=== PATIENT | female | born 1985 | race Caucasian/White ===

== ENCOUNTER 2023-02-07 16:07 | Emergency (ER) | payer OTHER, SELFPAY ==
[2023-02-07 16:15] VITALS: BP 133/81; PULSE 115; RESP 18; TEMP 36.7; O2SAT 100; BMI 22.7
[2023-02-07 18:18] LABS: Hematocrit 29.7 % (36.0-48.0); Hemoglobin 9.3 g/dL (12.0-16.0); Mean Corpuscular HGB Conc 31.3 g/dL (29.9-35.2); Mean Corpuscular Hemoglobin 24.9 pg (26.7-34.0); Mean Corpuscular Volume 79.6 fL (81.0-99.0); Mean Platelet Volume 8.7 fL (9.5-13.5); Platelet Count 870 10^3/uL (150-450); Red Blood Count 3.73 10^6/uL (4.20-5.40); Red Cell Distribution Width 16.5 % (11.0-15.0); White Blood Count 27.4 10^3/uL (4.0-11.0)
[2023-02-07 18:19] LABS: Bilirubin Urine SMALL (NEGATIVE); Blood Urine NEGATIVE (NEGATIVE); Clarity Urine CLEAR (CLEAR); Color Urine DK. YELLOW (YELLOW); Glucose Urine UA NEGATIVE (NEGATIVE); Ketones Urine NEGATIVE (NEGATIVE); Leukocyte Esterase Urine NEGATIVE (NEGATIVE); Nitrite Urine NEGATIVE (NEGATIVE); Protein Urine 30 mg/dL (NEG/TRACE); Specific Gravity Urine 1.025 (1.005-1.025); pH Urine 5.5 (5.0-9.0)
[2023-02-07 18:21] LABS: HCG Qualitative Urine* NEGATIVE (NEGATIVE)
[2023-02-07 18:22] LABS: Urine Microscopic Indicated YES
[2023-02-07 18:30] LABS: Bacteria Urine TRACE #/HPF (NONE SEEN); Cast Seen? SEEN #/LPF (NONE SEEN); Crystals Seen? None Seen #/HPF (None Seen); Hyaline Casts Urine RARE; Mucus Urine NONE SEEN (NONE SEEN); RBC Urine 0-2 #/HPF (0-2); Squamous Epithelial Cell Urine FEW #/LPF (NONE/RARE); Urine Culture Indicated NO; WBC Urine 0-2 #/HPF (NONE SEEN)
[2023-02-07 18:31] LABS: Alanine Aminotransferase 27 U/L (14-59); Albumin Globulin Ratio 0.4; Albumin Level 2.5 g/dL (3.4-5.0); Alkaline Phosphatase 188 U/L (46-116); Anion Gap 16.5; Aspartate Amino Transferase 30 U/L (15-37); BUN Creatinine Ratio 13.7; Bilirubin Total 0.4 mg/dL (0.2-1.0); Calcium 9.4 mg/dL (8.5-10.1); Chloride 95 mmol/L (98-107); Estimated GFR (African America >60 (>=60); Estimated GFR (Non-African Ame >60 (>=60); Globulin 5.9 g/dL; Glucose 93 mg/dL (74-106); Potassium 3.5 mmol/L (3.5-5.1); Sodium 136 mmol/L (136-145); Total Protein 8.4 g/dL (6.4-8.2)
[2023-02-07] MEDS: FAMOTIDINE/PF 20 MG/2 ML VIAL IV (18:31)
[2023-02-07 18:35] LABS: Anisocytosis 1+; Hypochromasia 1+; Lymphocytes Absolute Manual 4.38 10^3/uL (1.20-3.80); Monocytes Absolute Manual 1.09 10^3/uL (0.30-0.80); Segmented Neut Absolute Manual 21.92 10^3/uL (1.4-6.5)
--- NOTE | 2023-02-07 18:47 | CT_ITS ---
The [address] [address] Patient Name: CHAYO PATEL MRN: [id number] date: 1985 Sex: F Assigned Patient Location: ER Current Patient Location: ER Accession/Order Number: [id number] Exam Date: 02/07/2023 19:23 Report Date: 02/07/2023 20:42 At the request of: ROSE PUENTE Procedure: CT abdomen pelvis w con EXAM: CT abdomen pelvis w con HISTORY: pain COMPARISON: None. TECHNIQUE: CT of the abdomen and pelvis with intravenous contrast. Dose reduction techniques were achieved by using automated exposure control and/or adjustment of mA and/or kV according to patient size and/or use of iterative reconstruction technique. FINDINGS: TUBES AND IMPLANTS: Intrauterine device LOWER CHEST: Trace left pleural effusion. Left lower lobe segmental atelectasis. Small left lower lobe calcification which may representing a granuloma ABDOMEN and PELVIS ABDOMINAL WALL AND SOFT TISSUES: Unremarkable. BONES: No suspicious lesions. ARTERIES: No aortoiliac aneurysm VEINS: Unremarkable. LYMPH NODES: Mildly prominent periportal lymph nodes are seen in there. PERITONEUM/ RETROPERITONEUM: There is a large fluid collection seen abutting the left lobe of the liver and stomach measuring up 11.3 by 7.6 by 12.5 centimeters with mass effect on the liver parenchyma. There are adjacent lobulated appearing lesions within the liver parenchyma as well as anterior to stomach. Presacral fat stranding is also noted. BOWEL: Mild wall thickening of the sigmoid colon adjacent to the pelvic inflammatory process. APPENDIX: Unremarkable LIVER: Intraparenchymal and perihepatic fluid collections as previously described. Ill-defined hypodensity seen in the right and left lobes of the liver GALLBLADDER: Mild wall thickening, likely reactive BILE DUCTS: Not dilated SPLEEN: Unremarkable. PANCREAS: Unremarkable. ADRENALS: Unremarkable. KIDNEYS/ URETERS: Unremarkable. REPRODUCTIVE ORGANS: There are inflammatory changes seen around both ovaries and surrounding the uterus. The right ovary demonstrates a 3.7 centimeter cystic lesion. The left ovary demonstrates a multi multi loculated appearance with multiple cystic lesions URINARY BLADDER: Diffuse wall thickening CT/CT abdomen pelvis w con IMPRESSION: 1. 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 2. Mild wall thickening of the gallbladder sigmoid colon and bladder suggesting reactive cholecystitis, colitis and cystitis. 3. Trace left pleural effusion. Left lower lobe segmental atelectasis. Electronically authenticated by: ARACELI LOPEZ Date: 02/07/2023 20:42
--- NOTE | 2023-02-07 18:49 | ED.GENADUL1 ---
Documented by User: Yenny Galarza 02/08/23 13:43 HPI - General Adult General Chief complaint: Abdominal Pain Stated complaint: Loss Weight Time Seen by Provider: 02/07/23 18:05 Source: patient Mode of arrival: walk-in Limitations: no limitations History of Present Illness HPI narrative: 37 year old female presents with chief complaint of midepigastric abdominal pain with weight loss over the past several weeks. pt states when she eats her symptoms do improve for a short period of time. Patient also states she's had a 14 pound weight loss believes that is due to the gastroenteritis she had several weeks ago. Patient's afebrile. Abdomen soft nontender palpation. She does not appear toxic. pt states she recently finished 7 day course of keflex for uti. Related Data Allergies Allergy/AdvReac Type Severity Reaction Status Date / Time orphenadrine [From Norflex] Allergy Intermediate Verified 02/07/23 16:20 Sulfa (Sulfonamide Allergy Intermediate Verified 02/07/23 16:20 Antibiotics) Review of Systems ROS Narrative All Systems are negative except as noted/marked.All systems reviewed and otherwise negative PFSH PFSH Social History Smoking status: Current every day smoker Exam Narrative Exam Narrative: Nurses note and vital signs reviewed and patient is not hypoxic. General: The patient appears well and in no apparent distress. Patient is resting comfortably on cart. Skin: Warm, dry, no pallor noted. There is no rash noted. Head: Normocephalic, atraumatic Eye: Normal conjunctiva, no drainage, EOMI. PERRL Ears, Nose, Mouth, and Throat: oral mucosa is moist. Nares patent. Mouth without vesicles. Ear canals patent. Tm's without Erythema Cardiovascular: Regular Rate and Rhythm Respiratory: Patient is in no distress, no accessory muscle use, lungs are clear to auscultation, no wheezing, rales or rhonchi : pelvic exam benign, no cervical motion tenderness, no vaginal drainage or discharge Back: non-tender, no CVA tenderness bilaterally to percussion. GI: Normal bowel sounds, no tenderness to palpation, no masses appreciated. No rebound, guarding, or rigidity noted. Neurological: A&O x4, normal speech Psychiatric: Cooperative Constitutional Vital Signs, click to edit/add: Last Vital Signs Temp 98.1 F 02/07/23 16:15 Pulse 95 H 02/07/23 22:50 Resp 16 02/07/23 22:50 BP 107/63 02/07/23 22:50 Pulse Ox 99 02/07/23 22:50 O2 Del Method Room Air 02/07/23 22:50 Course Vital Signs Vital signs: Vital Signs Temperature 98.1 F 02/07/23 16:15 Pulse Rate 115 H 02/07/23 16:15 Respiratory Rate 18 02/07/23 16:15 Blood Pressure 133/81 02/07/23 16:15 Pulse Oximetry 100 02/07/23 16:15 Oxygen Delivery Method Room Air 02/07/23 16:15 Temperature 98.1 F 02/07/23 16:15 Pulse Rate 95 H 02/07/23 22:50 Respiratory Rate 16 02/07/23 22:50 Blood Pressure 107/63 02/07/23 22:50 Pulse Oximetry 99 02/07/23 22:50 Oxygen Delivery Method Room Air 02/07/23 22:50 Medical Decision Making MDM Narrative Medical decision making narrative: pt presents emergency room chief complaint epigastric pain and a feeling of fullness. She also states she's had an 11-14 pound weight loss over last several weeks. Recently finished a course of antibiotics for urinary tract infection. During the course of examination today patient states her fianc? had recently broke up she did have some vaginal drainage, discharge uncertain as to color or consistency. She finished Keflex today. pelvic Exam here in the emergency room was performed and benign. no cervical motion tenderness or signs of drainage. CBC came back with elevation twenty-seven thousand, urinalysis CMP unremarkable. CT scan results below show findings LYMPH NODES: Mildly prominent periportal lymph nodes are seen in there. PERITONEUM/ RETROPERITONEUM: There is a large fluid collection seen abutting the left lobe of the liver and stomach measuring up 11.3 by 7.6 by 12.5 centimeters with mass effect on the liver parenchyma. There are adjacent lobulated appearing lesions within the liver parenchyma as well as anterior to stomach. Presacral fat stranding is also noted. concerning for possible pelvic inflammatory disease, mild wall thickening of the gallbladder; bladder suggesting retroactive cholecystitis and cystitis along with trace pleural effusion. call was made to composition weatherboard installer surgeon Dr Duenas, he states the patient will be better served with interventional radiology. We have a call out currently to [facility] for possible transfer. IV zosyn has been started. Medical Records Medical records reviewed: Yes I reviewed the patient's medical records Lab Data Lab results reviewed: Yes I reviewed the patient's lab results Labs: Lab Results 02/07/23 Range/Units 18:00 WBC 27.4 H (4.0-11.0) 10^3/uL RBC 3.73 L (4.20-5.40) 10^6/uL Hgb 9.3 L (12.0-16.0) g/dL Hct 29.7 L (36.0-48.0) % MCV 79.6 L (81.0-99.0) fL MCH 24.9 L (26.7-34.0) pg MCHC 31.3 (29.9-35.2) g/dL RDW 16.5 H (11.0-15.0) % Plt Count 870 H (150-450) 10^3/uL MPV 8.7 L (9.5-13.5) fL Seg Neuts % (Manual) 80.0 Lymphocytes % (Manual) 16.0 L (20.5-60.0) % Monocytes % (Manual) 4.0 (1.7-12.0) % Eosinophils % (Manual) 0.0 L (0.9-7.0) % Basophils % (Manual) 0.0 L (0.2-2.0) % Neutrophils # (Manual) 21.92 H (1.4-6.5) 10^3/uL Lymphocytes # (Manual) 4.38 H (1.20-3.80) 10^3/uL Monocytes # (Manual) 1.09 H (0.30-0.80) 10^3/uL Eosinophils # (Manual) 0.00 (0.00-0.70) 10^3/uL Basophils # (Manual) 0.00 (0.00-0.10) 10^3/uL Hypochromasia 1+ Anisocytosis 1+ Sodium 136 (136-145) mmol/L Potassium 3.5 (3.5-5.1) mmol/L Chloride 95 L (98-107) mmol/L Carbon Dioxide 28.0 (21.0-32.0) mmol/L Anion Gap 16.5 BUN 13.0 (7.0-18.0) mg/dL Creatinine 0.95 (0.55-1.02) mg/dL Est GFR ( Amer) >60 (>=60) Est GFR (Non-Af Amer) >60 (>=60) BUN/Creatinine Ratio 13.7 Glucose 93 (74-106) mg/dL Calcium 9.4 (8.5-10.1) mg/dL Total Bilirubin 0.4 (0.2-1.0) mg/dL AST 30 (15-37) U/L ALT 27 (14-59) U/L Alkaline Phosphatase 188 H (46-116) U/L Total Protein 8.4 H (6.4-8.2) g/dL Albumin 2.5 L (3.4-5.0) g/dL Globulin 5.9 g/dL Albumin/Globulin Ratio 0.4 Lipase 16.0 (16.0-77.0) U/L Urine Color Dk. yellow (YELLOW) Urine Clarity Clear (CLEAR) Urine pH 5.5 (5.0-9.0) Ur Specific [place] 1.025 (1.005-1.025) Urine Protein 30 A (NEG/TRACE) mg/dL Urine Glucose (UA) Negative (NEGATIVE) mg/dL Urine Ketones Negative (NEGATIVE) mg/dL Urine Occult Blood Negative (NEGATIVE) Urine Nitrite Negative (NEGATIVE) Urine Bilirubin Small A (NEGATIVE) Urine Urobilinogen 1.0 (0.2-1.0) EU/dL Ur Leukocyte Esterase Negative (NEGATIVE) Urine RBC 0-2 (0-2) #/HPF Urine WBC 0-2 A (NONE SEEN) #/HPF Ur Squamous Epith Cells Few A (NONE/RARE) #/LPF Urine Crystals None seen (None Seen) #/HPF Urine Bacteria Trace A (NONE SEEN) #/HPF Urine Casts Seen A (NONE SEEN) #/LPF Hyaline Casts Rare Urine Mucus None seen (NONE SEEN) Ur Culture Indicated? No Urine HCG, Qual Negative (NEGATIVE) Monoscreen Negative (NEGATIVE) Imaging Data CT scan - abdomen: Radiologist's impression: Procedure: CT abdomen pelvis w con EXAM: CT abdomen pelvis w con HISTORY: pain COMPARISON: None. TECHNIQUE: CT of the abdomen and pelvis with intravenous contrast. Dose reduction techniques were achieved by using automated exposure control and/or adjustment of mA and/or kV according to patient size and/or use of iterative reconstruction technique. FINDINGS: TUBES AND IMPLANTS: Intrauterine device LOWER CHEST: Trace left pleural effusion. Left lower lobe segmental atelectasis. Small left lower lobe calcification which may representing a granuloma ABDOMEN and PELVIS ABDOMINAL WALL AND SOFT TISSUES: Unremarkable. BONES: No suspicious lesions. ARTERIES: No aortoiliac aneurysm VEINS: Unremarkable. LYMPH NODES: Mildly prominent periportal lymph nodes are seen in there. PERITONEUM/ RETROPERITONEUM: There is a large fluid collection seen abutting the left lobe of the liver and stomach measuring up 11.3 by 7.6 by 12.5 centimeters with mass effect on the liver parenchyma. There are adjacent lobulated appearing lesions within the liver parenchyma as well as anterior to stomach. Presacral fat stranding is also noted. BOWEL: Mild wall thickening of the sigmoid colon adjacent to the pelvic inflammatory process. APPENDIX: Unremarkable LIVER: Intraparenchymal and perihepatic fluid collections as previously described. Ill-defined hypodensity seen in the right and left lobes of the liver GALLBLADDER: Mild wall thickening, likely reactive BILE DUCTS: Not dilated SPLEEN: Unremarkable. PANCREAS: Unremarkable. ADRENALS: Unremarkable. KIDNEYS/ URETERS: Unremarkable. REPRODUCTIVE ORGANS: There are inflammatory changes seen around both ovaries and surrounding the uterus. The right ovary demonstrates a 3.7 centimeter cystic lesion. The left ovary demonstrates a multi multi loculated appearance with multiple cystic lesions URINARY BLADDER: Diffuse wall thickening IMPRESSION: 1. 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 2. Mild wall thickening of the gallbladder sigmoid colon and bladder suggesting reactive cholecystitis, colitis and cystitis. 3. Trace left pleural effusion. Left lower lobe segmental atelectasis. Electronically authenticated Discharge Plan Discharge Chief Complaint: Abdominal Pain Clinical Impression: Perihepatic abscess, Leukocytosis, Colitis, Cholecystitis Patient Disposition: [facility] Time of Disposition Decision: 23:10 Discharge Location: [facility] Discharge Date/Time: 02/08/23 01:35 Documented by User: Severino Dee MD 02/07/23 21:42 HPI - General Adult General Chief complaint: Abdominal Pain Stated complaint: Loss Weight Time Seen by Provider: 02/07/23 18:05 Related Data Allergies Allergy/AdvReac Type Severity Reaction Status Date / Time orphenadrine [From Norflex] Allergy Intermediate Verified 02/07/23 16:20 Sulfa (Sulfonamide Allergy Intermediate Verified 02/07/23 16:20 Antibiotics) PFSH PFS Social History Smoking status: Current every day smoker Exam Constitutional Vital Signs, click to edit/add: Last Vital Signs Temp 98.1 F 02/07/23 16:15 Pulse 95 H 02/07/23 22:50 Resp 16 02/07/23 22:50 BP 107/63 02/07/23 22:50 Pulse Ox 99 02/07/23 22:50 O2 Del Method Room Air 02/07/23 22:50 Course Vital Signs Vital signs: Vital Signs Temperature 98.1 F 02/07/23 16:15 Pulse Rate 115 H 02/07/23 16:15 Respiratory Rate 18 02/07/23 16:15 Blood Pressure 133/81 02/07/23 16:15 Pulse Oximetry 100 02/07/23 16:15 Oxygen Delivery Method Room Air 02/07/23 16:15 Temperature 98.1 F 02/07/23 16:15 Pulse Rate 95 H 02/07/23 22:50 Respiratory Rate 16 02/07/23 22:50 Blood Pressure 107/63 02/07/23 22:50 Pulse Oximetry 99 02/07/23 22:50 Oxygen Delivery Method Room Air 02/07/23 22:50 Medical Decision Making MDM Narrative Medical decision making narrative: pt presents emergency room chief complaint epigastric pain and a feeling of fullness. She also states she's had an 11-14 pound weight loss over last several weeks. Recently finished a course of antibiotics for urinary tract infection. During the course of examination today patient states her fianc? had recently broke up she did have some vaginal drainage, discharge uncertain as to color or consistency. She finished Keflex today. pelvic Exam here in the emergency room was performed and benign. no cervical motion tenderness or signs of drainage. CBC came back with elevation twenty-seven thousand, urinalysis CMP unremarkable. CT scan results below show findings LYMPH NODES: Mildly prominent periportal lymph nodes are seen in there. PERITONEUM/ RETROPERITONEUM: There is a large fluid collection seen abutting the left lobe of the liver and stomach measuring up 11.3 by 7.6 by 12.5 centimeters with mass effect on the liver parenchyma. There are adjacent lobulated appearing lesions within the liver parenchyma as well as anterior to stomach. Presacral fat stranding is also noted. concerning for possible pelvic inflammatory disease, mild wall thickening of the gallbladder; bladder suggesting retroactive cholecystitis and cystitis along with trace pleural effusion. call was made to composition weatherboard installer surgeon Dr Duenas, he states the patient will be better served with interventional radiology. We have a call out currently to [facility] for possible transfer. IV zosyn has been started. I, Dr Dee, have reviewed the above progress note and course of action in the ER; agree with the above. I have gone over history and physical, and discussed disposition and treatment plan with the patient. Pt transitioned to Dr Reyna with Yenny Galarza still in care of pt at 1900. Critical care time 35 minutes exclusive from separate billable procedures that were performed. The following was considered in the determination of critical care but not limited to the level of medical decision making, intensive cardiac and/or respiratory monitoring, frequent vital sign monitoring, evaluation of laboratory studies, evaluation of radiographic studies, oxygen monitoring, and constant monitoring and speaking to family at bedside Lab Data Labs: Lab Results 02/07/23 Range/Units 18:00 WBC 27.4 H (4.0-11.0) 10^3/uL RBC 3.73 L (4.20-5.40) 10^6/uL Hgb 9.3 L (12.0-16.0) g/dL Hct 29.7 L (36.0-48.0) % MCV 79.6 L (81.0-99.0) fL MCH 24.9 L (26.7-34.0) pg MCHC 31.3 (29.9-35.2) g/dL RDW 16.5 H (11.0-15.0) % Plt Count 870 H (150-450) 10^3/uL MPV 8.7 L (9.5-13.5) fL Seg Neuts % (Manual) 80.0 Lymphocytes % (Manual) 16.0 L (20.5-60.0) % Monocytes % (Manual) 4.0 (1.7-12.0) % Eosinophils % (Manual) 0.0 L (0.9-7.0) % Basophils % (Manual) 0.0 L (0.2-2.0) % Neutrophils # (Manual) 21.92 H (1.4-6.5) 10^3/uL Lymphocytes # (Manual) 4.38 H (1.20-3.80) 10^3/uL Monocytes # (Manual) 1.09 H (0.30-0.80) 10^3/uL Eosinophils # (Manual) 0.00 (0.00-0.70) 10^3/uL Basophils # (Manual) 0.00 (0.00-0.10) 10^3/uL Hypochromasia 1+ Anisocytosis 1+ Sodium 136 (136-145) mmol/L Potassium 3.5 (3.5-5.1) mmol/L Chloride 95 L (98-107) mmol/L Carbon Dioxide 28.0 (21.0-32.0) mmol/L Anion Gap 16.5 BUN 13.0 (7.0-18.0) mg/dL Creatinine 0.95 (0.55-1.02) mg/dL Est GFR ( Amer) >60 (>=60) Est GFR (Non-Af Amer) >60 (>=60) BUN/Creatinine Ratio 13.7 Glucose 93 (74-106) mg/dL Calcium 9.4 (8.5-10.1) mg/dL Total Bilirubin 0.4 (0.2-1.0) mg/dL AST 30 (15-37) U/L ALT 27 (14-59) U/L Alkaline Phosphatase 188 H (46-116) U/L Total Protein 8.4 H (6.4-8.2) g/dL Albumin 2.5 L (3.4-5.0) g/dL Globulin 5.9 g/dL Albumin/Globulin Ratio 0.4 Lipase 16.0 (16.0-77.0) U/L Urine Color Dk. yellow (YELLOW) Urine Clarity Clear (CLEAR) Urine pH 5.5 (5.0-9.0) Ur Specific [place] 1.025 (1.005-1.025) Urine Protein 30 A (NEG/TRACE) mg/dL Urine Glucose (UA) Negative (NEGATIVE) mg/dL Urine Ketones Negative (NEGATIVE) mg/dL Urine Occult Blood Negative (NEGATIVE) Urine Nitrite Negative (NEGATIVE) Urine Bilirubin Small A (NEGATIVE) Urine Urobilinogen 1.0 (0.2-1.0) EU/dL Ur Leukocyte Esterase Negative (NEGATIVE) Urine RBC 0-2 (0-2) #/HPF Urine WBC 0-2 A (NONE SEEN) #/HPF Ur Squamous Epith Cells Few A (NONE/RARE) #/LPF Urine Crystals None seen (None Seen) #/HPF Urine Bacteria Trace A (NONE SEEN) #/HPF Urine Casts Seen A (NONE SEEN) #/LPF Hyaline Casts Rare Urine Mucus None seen (NONE SEEN) Ur Culture Indicated? No Urine HCG, Qual Negative (NEGATIVE) Monoscreen Negative (NEGATIVE) Discharge Plan Discharge Chief Complaint: Abdominal Pain Clinical Impression: Perihepatic abscess, Leukocytosis, Colitis, Cholecystitis Patient Disposition: [facility] Time of Disposition Decision: 23:10 Discharge Location: [facility] Discharge Date/Time: 02/08/23 01:35 Documented by User: Ricardo Reyna 02/07/23 23:10 HPI - General Adult General Chief complaint: Abdominal Pain Stated complaint: Loss Weight Time Seen by Provider: 02/07/23 18:05 Related Data Allergies Allergy/AdvReac Type Severity Reaction Status Date / Time orphenadrine [From Norflex] Allergy Intermediate Verified 02/07/23 16:20 Sulfa (Sulfonamide Allergy Intermediate Verified 02/07/23 16:20 Antibiotics) PFSH PFSH Social History Smoking status: Current every day smoker Exam Constitutional Vital Signs, click to edit/add: Last Vital Signs Temp 98.1 F 02/07/23 16:15 Pulse 95 H 02/07/23 22:50 Resp 16 02/07/23 22:50 BP 107/63 02/07/23 22:50 Pulse Ox 99 02/07/23 22:50 O2 Del Method Room Air 02/07/23 22:50 Course Vital Signs Vital signs: Vital Signs Temperature 98.1 F 02/07/23 16:15 Pulse Rate 115 H 02/07/23 16:15 Respiratory Rate 18 02/07/23 16:15 Blood Pressure 133/81 02/07/23 16:15 Pulse Oximetry 100 02/07/23 16:15 Oxygen Delivery Method Room Air 02/07/23 16:15 Temperature 98.1 F 02/07/23 16:15 Pulse Rate 95 H 02/07/23 22:50 Respiratory Rate 16 02/07/23 22:50 Blood Pressure 107/63 02/07/23 22:50 Pulse Oximetry 99 02/07/23 22:50 Oxygen Delivery Method Room Air 02/07/23 22:50 Medical Decision Making MDM Narrative Medical decision making narrative: pt presents emergency room chief complaint epigastric pain and a feeling of fullness. She also states she's had an 11-14 pound weight loss over last several weeks. Recently finished a course of antibiotics for urinary tract infection. During the course of examination today patient states her fianc? had recently broke up she did have some vaginal drainage, discharge uncertain as to color or consistency. She finished Keflex today. pelvic Exam here in the emergency room was performed and benign. no cervical motion tenderness or signs of drainage. CBC came back with elevation twenty-seven thousand, urinalysis CMP unremarkable. CT scan results below show findings LYMPH NODES: Mildly prominent periportal lymph nodes are seen in there. PERITONEUM/ RETROPERITONEUM: There is a large fluid collection seen abutting the left lobe of the liver and stomach measuring up 11.3 by 7.6 by 12.5 centimeters with mass effect on the liver parenchyma. There are adjacent lobulated appearing lesions within the liver parenchyma as well as anterior to stomach. Presacral fat stranding is also noted. concerning for possible pelvic inflammatory disease, mild wall thickening of the gallbladder; bladder suggesting retroactive cholecystitis and cystitis along with trace pleural effusion. call was made to composition weatherboard installer surgeon Dr Duenas, he states the patient will be better served with interventional radiology. We have a call out currently to [facility] for possible transfer. IV zosyn has been started. I, Dr Dee, have reviewed the above progress note and course of action in the ER; agree with the above. I have gone over history and physical, and discussed disposition and treatment plan with the patient. Pt transitioned to Dr Reyna with Yenny Galarza still in care of pt at 1900. Critical care time 35 minutes exclusive from separate billable procedures that were performed. The following was considered in the determination of critical care but not limited to the level of medical decision making, intensive cardiac and/or respiratory monitoring, frequent vital sign monitoring, evaluation of laboratory studies, evaluation of radiographic studies, oxygen monitoring, and constant monitoring and speaking to family at bedside attending physician note - I took over for Yenny Galarza and Dr Dee. I spoke with the attending hospitalist at [facility] and he did not feel comfortable accepting this patient and recommended tertiary care center transfer. After speaking with GI and General Surgery - Dr South- at [facility], I spoke with the Internal Medicine DIRECTOR CLINICAL RESEARCH Bhumi Givens, who accepted the patient to the hospitalist service with planned surgical and other consultation as needed. The patient was kept up to date on the plan and challenges we had getting her transferred and remains hemodynamically stable for transfer. - DO Saida. Lab Data Labs: Lab Results 02/07/23 Range/Units 18:00 WBC 27.4 H (4.0-11.0) 10^3/uL RBC 3.73 L (4.20-5.40) 10^6/uL Hgb 9.3 L (12.0-16.0) g/dL Hct 29.7 L (36.0-48.0) % MCV 79.6 L (81.0-99.0) fL MCH 24.9 L (26.7-34.0) pg MCHC 31.3 (29.9-35.2) g/dL RDW 16.5 H (11.0-15.0) % Plt Count 870 H (150-450) 10^3/uL MPV 8.7 L (9.5-13.5) fL Seg Neuts % (Manual) 80.0 Lymphocytes % (Manual) 16.0 L (20.5-60.0) % Monocytes % (Manual) 4.0 (1.7-12.0) % Eosinophils % (Manual) 0.0 L (0.9-7.0) % Basophils % (Manual) 0.0 L (0.2-2.0) % Neutrophils # (Manual) 21.92 H (1.4-6.5) 10^3/uL Lymphocytes # (Manual) 4.38 H (1.20-3.80) 10^3/uL Monocytes # (Manual) 1.09 H (0.30-0.80) 10^3/uL Eosinophils # (Manual) 0.00 (0.00-0.70) 10^3/uL Basophils # (Manual) 0.00 (0.00-0.10) 10^3/uL Hypochromasia 1+ Anisocytosis 1+ Sodium 136 (136-145) mmol/L Potassium 3.5 (3.5-5.1) mmol/L Chloride 95 L (98-107) mmol/L Carbon Dioxide 28.0 (21.0-32.0) mmol/L Anion Gap 16.5 BUN 13.0 (7.0-18.0) mg/dL Creatinine 0.95 (0.55-1.02) mg/dL Est GFR ( Amer) >60 (>=60) Est GFR (Non-Af Amer) >60 (>=60) BUN/Creatinine Ratio 13.7 Glucose 93 (74-106) mg/dL Calcium 9.4 (8.5-10.1) mg/dL Total Bilirubin 0.4 (0.2-1.0) mg/dL AST 30 (15-37) U/L ALT 27 (14-59) U/L Alkaline Phosphatase 188 H (46-116) U/L Total Protein 8.4 H (6.4-8.2) g/dL Albumin 2.5 L (3.4-5.0) g/dL Globulin 5.9 g/dL Albumin/Globulin Ratio 0.4 Lipase 16.0 (16.0-77.0) U/L Urine Color Dk. yellow (YELLOW) Urine Clarity Clear (CLEAR) Urine pH 5.5 (5.0-9.0) Ur Specific [place] 1.025 (1.005-1.025) Urine Protein 30 A (NEG/TRACE) mg/dL Urine Glucose (UA) Negative (NEGATIVE) mg/dL Urine Ketones Negative (NEGATIVE) mg/dL Urine Occult Blood Negative (NEGATIVE) Urine Nitrite Negative (NEGATIVE) Urine Bilirubin Small A (NEGATIVE) Urine Urobilinogen 1.0 (0.2-1.0) EU/dL Ur Leukocyte Esterase Negative (NEGATIVE) Urine RBC 0-2 (0-2) #/HPF Urine WBC 0-2 A (NONE SEEN) #/HPF Ur Squamous Epith Cells Few A (NONE/RARE) #/LPF Urine Crystals None seen (None Seen) #/HPF Urine Bacteria Trace A (NONE SEEN) #/HPF Urine Casts Seen A (NONE SEEN) #/LPF Hyaline Casts Rare Urine Mucus None seen (NONE SEEN) Ur Culture Indicated? No Urine HCG, Qual Negative (NEGATIVE) Monoscreen Negative (NEGATIVE) Discharge Plan Discharge Chief Complaint: Abdominal Pain Clinical Impression: Perihepatic abscess, Leukocytosis, Colitis, Cholecystitis Patient Disposition: [facility] Time of Disposition Decision: 23:10 Discharge Location: [facility] Discharge Date/Time: 02/08/23 01:35
[2023-02-07 19:20] LABS: Mono Screen NEGATIVE (NEGATIVE)
[2023-02-07] MEDS: PIPERACILLIN SODIUM/TAZOBACTAM 4.5 GM in 0.9 % SODIUM CHLORIDE 50 ML IV (21:39)
[2023-02-07 22:50] VITALS: BP 107/63; PULSE 95; RESP 16; O2SAT 99
--- NOTE | 2023-02-14 15:39 | PC.NURSE ---
02/14/23 1540 M Jason ASHLEY reviewed pt vaginal culture + yeast, called pt and updated on this result, pt continues on month long tx of oral augmentin, Jason request pt to follow up with SURGICAL CLINICAL REVIEWER following atb tx for tx for yeast. pt educated on this, states will be following up with Hanh ASHLEY with Dr. Rodriguez office, faxed results to office along with explanation. Haim Cole RN
== END 2023-02-08 01:35 | disposition short-term general hospital (02) ==
PROVIDERS: Emergency Medicine; Physician Assistant; Emergency Provider Emergency Medicine
DX: K75.0 Abscess of liver (principal); D72.829 Elevated white blood cell count, unspecified; K52.9 Noninfective gastroenteritis and colitis, unspecified; K81.9 Cholecystitis, unspecified; F17.210 Nicotine dependence, cigarettes, uncomplicated; Z87.440 Personal history of urinary (tract) infections
CPT/HCPCS: 36415; 74177; 80053; 81001; 83690; 84703; 85027; 86308; 87040; 87070; 87106; 96365; 96375; 99285; Q9967

== ENCOUNTER 2023-09-01 14:03 | Emergency (ER) | payer OTHER, SELFPAY ==
[2023-09-01] VITALS (11 sets, daily range): BP systolic 122–168; BP diastolic 76–94; PULSE 89–105; TEMP 36.8; O2SAT 95–100; BMI 22.7
--- NOTE | 2023-09-01 | CT_ITS ---
The [address] [address] Patient Name: CHAYO PATEL MRN: [id number] date: 1985 Sex: F Assigned Patient Location: ER Current Patient Location: Accession/Order Number: [id number] Exam Date: 09/01/2023 15:20 Report Date: 09/01/2023 16:01 At the request of: CAMDEN BARBER Procedure: CT abdomen pelvis w con EXAMINATION: CT abdomen pelvis w con HISTORY: Abdominal pain, left upper COMPARISON: CT abdomen pelvis 02/07/2023 TECHNIQUE: Axial, Coronal, and Sagittal images were obtained without and/or with IV contrast as indicated by examination type. Dose reduction techniques were achieved by using automated exposure control and/or adjustment of mA and/or kV according to patient size and/or use of iterative reconstruction technique. FINDINGS: LUNG BASES: No visible pulmonary or pleural disease. LIVER: No enlargement, atrophy, suspicious density, or significant focal lesion. BILIARY: No dilatation or calcification. PANCREAS: No lesion, fluid collection, or abnormal duct dilatation. SPLEEN: No enlargement or focal lesion. ADRENALS: No mass or enlargement. KIDNEYS: No mass, obstruction, or calcification. BOWEL/MESENTERY: No visible mass, obstruction, or bowel wall thickening. Normal appendix. AORTA/VASCULAR: No aneurysm or dissection. RETROPERITONEUM: No mass or adenopathy. LYMPH NODES: No adenopathy. URINARY BLADDER: No visible focal wall thickening, lesion, or calculus. PELVIC ORGANS: Within right adnexa is a 4.0 cm cyst, likely ovarian. Left ovary contains 2 adjacent 1.0 cm cysts. No visible mass. Pelvic organs appropriate for patient age. No free fluid. IUD within endometrial cavity. ABDOMINAL WALL: No mass or hernia. BONES: No bony lesion or fracture. OTHER: Negative. CT/CT abdomen pelvis w con IMPRESSION: 1. Within right adnexa is a 4.0 cm cyst, likely representing the right ovary. No associated findings to suggest ovarian torsion. Consider ultrasound follow-up if clinically indicated. 2. Unremarkable bowel. No additional acute or suspicious findings to account for patient's symptoms. Electronically authenticated by: ALEKSANDR SULLIVAN Date: 09/01/2023 16:01
--- NOTE | 2023-09-01 14:15 | ED_ITS ---
HPI HPI - General Adult General Chief complaint: Abdominal Pain Stated complaint: FLANK PAIN Time Seen by Provider: 09/01/23 14:07 Source: patient Mode of arrival: walk-in Limitations: no limitations History of Present Illness HPI narrative: Patient is a 38-year-old female who presents to the emergency department for the evaluation of left flank pain for the last 3 days that comes and goes. She reports associated nausea and dry heaving. She has had decreased oral intake and is concerned that she may be dehydrated because her urine is darker. She has had no objective fevers, upper respiratory symptoms, diarrhea. She denies any hematuria or dysuria. No medications taken prior to arrival. She points to the left upper quadrant as a source of her pain. She is concerned because when she presented to this emergency department in January of last year, she was found to have cholecystitis and a perihepatic abscess which required transfer to a tertiary care facility for drainage. She did not have a cholecystectomy. She is not concerned for . Related Data Previous Rx's ?Medication ?Instructions ?Recorded hyoscyamine sulfate 0.125 mg 0.125 mg PO Q6H PRN abdominal pain 09/01/23 tablet (Levsin) #12 tabs ondansetron 4 mg disintegrating 4 mg PO Q6H PRN nausea and 09/01/23 tablet vomiting #12 tabs pantoprazole 40 mg tablet,delayed 40 mg PO DAILY #7 tabs 09/01/23 release (Protonix) Allergies Allergy/AdvReac Type Severity Reaction Status Date / Time orphenadrine [From Norflex] Allergy Intermediate Verified 02/07/23 16:20 Sulfa (Sulfonamide Allergy Intermediate Verified 02/07/23 16:20 Antibiotics) Opioid HPI Opioid Management Most Recent Opioid Data: Last Pain Scale 4 09/01/23 14:21 Review of Systems ROS Constitutional Denies: fever or chills Ears, nose, mouth, and throat Denies: throat pain or nasal congestion Cardiovascular Denies: chest pain Respiratory Denies: shortness of breath Gastrointestinal Reports: abdominal pain and nausea; Denies: vomiting or diarrhea Genitourinary Denies: painful urination Musculoskeletal Reports: back pain Integumentary/Breast Denies: rash Neurological Denies: headache Hematologic/Lymphatic Denies: easy bruising or easy bleeding PFSH PFSH Social History Smoking status: Current every day smoker Exam Narrative Exam Narrative: Gen.: Awake, alert, in no distress Head: Normocephalic, atraumatic ENT: Moist mucous membranes Respiratory: No respiratory distress, lungs clear bilaterally Cardio: Regular rate and rhythm Gastrointestinal: Abdomen is soft, nondistended and nontender to palpation Back: No CVA tenderness Extremities: Moves extremities equally Psych: Normal mood and affect Neuro: No focal neuro deficit Skin: Warm, dry, intact Constitutional Vital Signs, click to edit/add: Last Vital Signs Temp 98.2 F 09/01/23 14:08 Pulse 105 H 09/01/23 14:08 Resp 20 09/01/23 14:08 BP 130/76 09/01/23 15:00 Pulse Ox 100 09/01/23 15:50 O2 Del Method Room Air 09/01/23 14:08 Course Vital Signs Vital signs: Vital Signs Temperature 98.2 F 09/01/23 14:08 Pulse Rate 105 H 09/01/23 14:08 Respiratory Rate 20 09/01/23 14:08 Blood Pressure 168/94 H 09/01/23 14:08 Pulse Oximetry 100 09/01/23 14:08 Oxygen Delivery Method Room Air 09/01/23 14:08 Temperature 98.2 F 09/01/23 14:08 Pulse Rate 105 H 09/01/23 14:08 Respiratory Rate 20 09/01/23 14:08 Blood Pressure 130/76 09/01/23 15:00 Pulse Oximetry 100 09/01/23 15:50 Oxygen Delivery Method Room Air 09/01/23 14:08 Medical Decision Making MDM Narrative Medical decision making narrative: Patient treated with IV Toradol, Zofran, Levsin for comfort. Abdomen is soft and benign in the ER. Lab studies are within normal limits, CT of the abdomen and pelvis shows the patient has a small right ovarian cyst although she has no point tenderness in the right lower quadrant over McBurney's point. I do not feel this is contributing to her symptoms today. CT is otherwise unremarkable and the patient is placed on Levsin, Protonix, Zofran for home. Follow-up PCP and return to the ER if symptoms change or worsen SUPERVISED APC VISIT, PHYSICIAN ATTESTATION: Based on the medical record the care appears appropriate. ? Medical Records Medical records reviewed: Yes I reviewed the patient's medical records Lab Data Lab results reviewed: Yes I reviewed the patient's lab results Labs: Lab Results 09/01/23 09/01/23 Range/Units 14:14 14:20 WBC 9.9 (4.0-11.0) 10^3/uL RBC 4.22 (4.20-5.40) 10^6/uL Hgb 12.5 (12.0-16.0) g/dL Hct 37.3 (36.0-48.0) % MCV 88.4 (81.0-99.0) fL MCH 29.6 (26.7-34.0) pg MCHC 33.5 (29.9-35.2) g/dL RDW 12.9 (11.0-15.0) % Plt Count 370 (150-450) 10^3/uL MPV 9.1 L (9.5-13.5) fL Neut % (Auto) 62.3 (43.0-75.0) % Lymph % (Auto) 31.0 (20.5-60.0) % [place] % (Auto) 5.8 (1.7-12.0) % Eos % (Auto) 0.3 L (0.9-7.0) % Baso % (Auto) 0.5 (0.2-2.0) % Neut # (Auto) 6.1 (1.4-6.5) 10^3/uL Lymph # (Auto) 3.1 (1.2-3.8) 10^3/uL [place] # (Auto) 0.6 (0.3-0.8) 10^3/uL Eos # (Auto) 0.0 (0.0-0.7) 10^3/uL Baso # (Auto) 0.1 (0.0-0.1) 10^3/uL Abs Immat Gran (auto) 0.01 (0.00-0.03) 10^3/uL Imm/Tot Granulo (auto) 0.1 (0.0-0.5) % Sodium 138 (136-145) mmol/L Potassium 3.6 (3.5-5.1) mmol/L Chloride 101 (98-107) mmol/L Carbon Dioxide 26.8 (21.0-32.0) mmol/L Anion Gap 13.8 BUN 10.0 (7.0-18.0) mg/dL Creatinine 0.84 (0.55-1.02) mg/dL Est GFR ( Amer) >60 (>=60) Est GFR (Non-Af Amer) >60 (>=60) BUN/Creatinine Ratio 11.9 Glucose 91 (74-106) mg/dL Lactate 1.4 (0.4-2.0) mmol/L Calcium 9.7 (8.5-10.1) mg/dL Total Bilirubin 0.5 (0.2-1.0) mg/dL AST 18 (15-37) U/L ALT 20 (14-59) U/L Alkaline Phosphatase 75 (46-116) U/L Total Protein 7.7 (6.4-8.2) g/dL Albumin 4.6 (3.4-5.0) g/dL Globulin 3.1 g/dL Albumin/Globulin Ratio 1.5 Lipase 20.0 (16.0-77.0) U/L Urine Color Dk yellow (YELLOW) Urine Clarity Clear (CLEAR) Urine pH 6.0 (5.0-9.0) Ur Specific [place] 1.020 (1.005-1.025) Urine Protein Negative (NEG/TRACE) mg/dL Urine Glucose (UA) Negative (NEGATIVE) mg/dL Urine Ketones 15 A (NEGATIVE) mg/dL Urine Occult Blood Negative (NEGATIVE) Urine Nitrite Negative (NEGATIVE) Urine Bilirubin Small A (NEGATIVE) Urine Urobilinogen 1.0 (0.2-1.0) EU/dL Ur Leukocyte Esterase Negative (NEGATIVE) Urine HCG, Qual Negative (NEGATIVE) Imaging Data CT scan - abdomen: Attestation: I have reviewed the pertinent imaging results. Radiologist's impression: ITS Impressions Abdomen/Pelvis CT 09/01/23 00:00 IMPRESSION: 1. Within right adnexa is a 4.0 cm cyst, likely representing the right ovary. No associated findings to suggest ovarian torsion. Consider ultrasound follow-up if clinically indicated. 2. Unremarkable bowel. No additional acute or suspicious findings to account for patient's symptoms. Electronically authenticated by: ALEKSANDR SULLIVAN Date: 09/01/2023 16:01 Discharge Plan Discharge Stand Alone Forms: Portal Instructions Chief Complaint: Abdominal Pain Clinical Impression: Abdominal pain Patient Disposition: Home, Self-Care Time of Disposition Decision: 16:17 Condition: Good Prescriptions / Home Meds: New pantoprazole [Protonix] 40 mg tablet,delayed release (DR/EC) 40 mg PO DAILY Qty: 7 0RF hyoscyamine sulfate [Levsin] 0.125 mg tablet 0.125 mg PO Q6H PRN (Reason: abdominal pain) Qty: 12 0RF ondansetron 4 mg tablet,disintegrating 4 mg PO Q6H PRN (Reason: nausea and vomiting) Qty: 12 0RF Print Language: Indonesian Instructions: Abdominal Pain (ED) Referrals: JUNO TABOR [Family Provider] - 1 week
[2023-09-01] MEDS: 0.9 % SODIUM CHLORIDE 1,000 ML 1000 ML IV (14:28)
[2023-09-01] MEDS: HYOSCYAMINE SULFATE 0.125 MG TAB.SUBL SL (14:29)
[2023-09-01] MEDS: ONDANSETRON PF 4 MG/2 ML VIAL IV (14:29)
[2023-09-01] MEDS: KETOROLAC TROMETHAMINE 30 MG/ML VIAL IVP (14:29)
[2023-09-01 14:33] LABS: Bilirubin Urine SMALL (NEGATIVE); Blood Urine NEGATIVE (NEGATIVE); Clarity Urine CLEAR (CLEAR); Glucose Urine UA NEGATIVE (NEGATIVE); Ketones Urine 15 mg/dL (NEGATIVE); Leukocyte Esterase Urine NEGATIVE (NEGATIVE); Nitrite Urine NEGATIVE (NEGATIVE); Protein Urine NEGATIVE (NEG/TRACE)
[2023-09-01 14:33] LABS: Basophils Absolute Auto 0.1 10^3/uL (0.0-0.1); Basophils Percent Auto 0.5 % (0.2-2.0); Eosinophils Percent Auto 0.3 % (0.9-7.0); Hematocrit 37.3 % (36.0-48.0); Hemoglobin 12.5 g/dL (12.0-16.0); Immature Granulocytes Abs Auto 0.01 10^3/uL (0.00-0.03); Immature Granulocytes Pct Auto 0.1 % (0.0-0.5); Lymphocytes Absolute Auto 3.1 10^3/uL (1.2-3.8); Mean Corpuscular HGB Conc 33.5 g/dL (29.9-35.2); Mean Corpuscular Hemoglobin 29.6 pg (26.7-34.0); Mean Corpuscular Volume 88.4 fL (81.0-99.0); Mean Platelet Volume 9.1 fL (9.5-13.5); Monocytes Absolute Auto 0.6 10^3/uL (0.3-0.8); Monocytes Percent Auto 5.8 % (1.7-12.0); Neutrophils Absolute Auto 6.1 10^3/uL (1.4-6.5); Neutrophils Percent Auto 62.3 % (43.0-75.0); Platelet Count 370 10^3/uL (150-450); Red Blood Count 4.22 10^6/uL (4.20-5.40); Red Cell Distribution Width 12.9 % (11.0-15.0); White Blood Count 9.9 10^3/uL (4.0-11.0)
[2023-09-01 14:34] LABS: Color Urine DK YELLOW (YELLOW); Urine Microscopic Indicated NO
[2023-09-01 14:42] LABS: HCG Qualitative Urine* NEGATIVE (NEGATIVE)
[2023-09-01 14:43] LABS: Internal Control Within Normal Limits
[2023-09-01 14:55] LABS: Lactate/Lactic Acid 1.4 mmol/L (0.4-2.0)
[2023-09-01 15:02] LABS: Alanine Aminotransferase 20 U/L (14-59); Albumin Globulin Ratio 1.5; Albumin Level 4.6 g/dL (3.4-5.0); Alkaline Phosphatase 75 U/L (46-116); Anion Gap 13.8; Aspartate Amino Transferase 18 U/L (15-37); BUN Creatinine Ratio 11.9; Bilirubin Total 0.5 mg/dL (0.2-1.0); Calcium 9.7 mg/dL (8.5-10.1); Carbon Dioxide 26.8 mmol/L (21.0-32.0); Chloride 101 mmol/L (98-107); Estimated GFR (African America >60 (>=60); Estimated GFR (Non-African Ame >60 (>=60); Globulin 3.1 g/dL; Glucose 91 mg/dL (74-106); Potassium 3.6 mmol/L (3.5-5.1); Sodium 138 mmol/L (136-145); Total Protein 7.7 g/dL (6.4-8.2)
== END 2023-09-01 16:25 | disposition home or self-care (01) ==
PROVIDERS: Physician Assistant; Emergency Provider Emergency Medicine
DX: R10.9 Unspecified abdominal pain (principal); F17.200 Nicotine dependence, unspecified, uncomplicated
CPT/HCPCS: 36415; 74177; 80053; 81003; 83605; 83690; 84703; 85025; 96374; 96375; 99285; J1885; J2405; Q9967